=== PATIENT | female | born 1970 | race Hispanic/Latino ===

== ENCOUNTER 2024-09-12 21:52 | Emergency (ER) | payer OTHER ==
--- OUTSIDE RECORDS SUMMARY | 2024-09-12 21:55 | XMS REPORT | Continuity of Care Document ---
Author Name Unknown Address [address] [place] [address] [address] [place] [address] [facility] Address [address] [facility]. 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 Name Role Phone Patel_J Attending Clinician Unavailable [email or web address] Attending Clinician Unavailable Patel_J Admitting Clinician Unavailable [email or web address] Admitting Clinician Unavailable Payers Payer Name Policy Type Policy Number Effective Date Expirati on Date Source Encounters Start Date/Time End Date/Time Encounter Type Admission Type Attending Clinicians Care Facility Care Department Encounter ID Source 2022-02-21 00:00:00 2022-02-21 00:00:00 Outpatient Patel_J VFP VFP [id number] [facility] e 2020-11-23 04:19:00 2020-11-23 04:19:00 Outpatient VFP VFP [id number] [facility] e 2020-11-05 01:07:00 2020-11-05 01:07:00 Outpatient GC_CSFC_PAT EL_J [facility] [id number] [facility]
--- NOTE | 2024-09-12 22:30 | RAD REPORT ---
Exam:Foot Left 3 View CLINICAL HISTORY: Left foot pain FINDINGS: Mildly displaced oblique fracture fifth proximal phalanx. No dislocation
--- NOTE | 2024-09-12 22:37 | EDPHYS ---
Physician Documentation [facility] Name: Briseida Cutler Age: 54 yrs Sex: Female : 1970 Arrival Date: 09/12/2024 Time: 21:52 Bed IW2 Private MD: ED Physician Danie Bartlett HPI: 09/12 22:53 This 54 yrs old Female presents to ER via Ambulatory with complaints of Toe kb Injury. 22:53 Pt is a 54 year old female who presents for pain to left fifth toe after accidentally kb kicking furniture. Denies any other injury. . 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 - Infectious Disease History:: Denies. - Social history:: Smoking status: Patient denies any tobacco usage or history of. ROS: 22:52 Constitutional: As per HPI kb Exam: 22:52 Constitutional: This is a well developed, well nourished patient who is awake, alert, kb and in no acute distress. Head/Face: Normocephalic, atraumatic. ENT: Moist Mucous membranes Cardiovascular: Regular rate Respiratory: Respirations even and unlabored. No increased work of breathing. Talking in full sentences Skin: Warm, dry with normal turgor. Normal color. Neuro: Awake and alert, GCS 15, oriented to person, place, time, and situation. 22:52 Musculoskeletal/extremity: Extremities: grossly normal except: noted in the left fifth toe: pain, swelling, tenderness, ROM: intact in all extremities, Circulation is intact in all extremities. Sensation intact. Weight bearing: able to fully bear weight, Vital Signs: 22:00 BP 156 / 88; Pulse 69; Resp 17; Temp 98.4; Pulse Ox 100% ; Weight 63.5 kg; Height 5 ft. me1 1 in. ; Pain 5/10; 23:04 BP 149 / 81; Pulse 75; Resp 17 S; Temp 98.3(O); Pulse Ox 100% on R/A; lg3 22:00 Body Mass Index 26.45 (63.50 kg, 154.94 cm) me1 22:00 Pain Scale: Adult me1 MDM: 21:58 Medical Screening Exam initiated kb 22:52 Differential diagnosis: contusion, fracture. Data reviewed: vital signs, nurses notes. kb Historians other than the Patient: Daughter/Son: daughter. Counseling: I had a detailed discussion with the patient and/or guardian regarding the historical points, exam findings, and any diagnostic results supporting the discharge/admit diagnosis, radiology results, the need for outpatient follow up, a family practitioner, to return to the emergency department if symptoms worsen or persist or if there are any questions or concerns that arise at home. 09/12 22:00 Order name: Foot Left 3 View XRAY; Complete Time: 22:31 kb 09/12 22:31 Order name: Misc. Order: yoan tape; Complete Time: 23:04 kb Administered Medications: 22:55 Drug: HYDROcodone-acetaminophen PO 5 mg-325 mg 1 tabs PO once Route: PO; lg3 23:04 Follow up: Response: No adverse reaction; Marked relief of symptoms lg3 Disposition: 23:12 Co-signature as Attending Physician, Danie Bartlett MD I reviewed the patient's care rt provided by the Advanced Practice Provider and agree with the diagnosis and treatment plan. Disposition Summary: 09/12/24 22:37 Discharge Ordered Notes: Location: Home Condition: Stable kb Diagnosis - Displaced fracture of proximal phalanx of left lesser toe(s), initial encounter for kb closed fracture Followup: kb - With: Emergency Department - When: As needed - Reason: Worsening of condition Followup: kb - With: Private Physician - When: 2 - 3 days - Reason: Recheck today's complaints, Continuance of care, Re-evaluation by your physician Discharge Instructions: - Discharge Summary Sheet kb - Toe Fracture, [id number] kb Forms: - Medication Reconciliation Form kb - Antibiotic Education kb - Prescription Opioid Use kb - Patient Portal Instructions kb - Leadership Thank You Letter Prescriptions: - Diclofenac Sodium 75 mg Oral tablet, delayed release (enteric coated) - take 1 tablet ORAL route 2 times per day As needed; 30 tablet; Refills: 0, kb Product Selection Permitted Signatures: Dispatcher [employer] Geri Quick, GEOVANY-hCilo ARMENTA-Aleksandra Charles RN RN lg3 Danie Bartlett MD MD rt Leta Lamar RN RN me1 Corrections: (The following items were deleted from the chart) : Home Meds: None; me1 me1 22: PSHx: None; me1 me1
--- NOTE | 2024-09-12 22:37 | ER ---
Nurse's Notes [facility] Name: Briseida Cutler Age: 54 yrs Sex: Female : 1970 Arrival Date: 09/12/2024 Time: 21:52 Bed IW2 Private MD: Diagnosis: Displaced fracture of proximal phalanx of left lesser toe(s), initial encounter for closed fracture Presentation: 09/12 22:00 Chief complaint: Patient states: hit her left 5th toe on her headboard about 8 pm me1 tonight. c/o pain 11/12. Coronavirus screen: Vaccine status: Patient reports being unvaccinated. Ebola Screen: No symptoms or risks identified at this time. Initial Sepsis Screen: Does the patient meet any 2 criteria? No. Patient's initial sepsis screen is negative. Does the patient have a suspected source of infection? No. Patient's initial sepsis screen is negative. Risk Assessment: Do you want to hurt yourself or someone else?. Onset of symptoms was September 12, 2024 at 20:00. 22:00 Method Of Arrival: Ambulatory nd1 22:00 Acuity: DAVY 4 me1 Triage Assessment: 22:02 General: Appears uncomfortable, well groomed, well developed, well nourished, Behavior me1 is calm, cooperative, appropriate for age. Pain: Complains of pain in left fifth toe Pain does not radiate. Pain currently is 5 out of 10 on a pain scale. Quality of pain is described as throbbing, Pain began suddenly, Is continuous. EENT: No signs and/or symptoms were reported regarding the EENT system. Neuro: Level of Consciousness is awake, alert, obeys commands, Oriented to person, place, time, situation, Appropriate for age. Cardiovascular: Patient's skin is warm and dry. Respiratory: Airway is patent Respiratory effort is even, unlabored, Respiratory pattern is regular, symmetrical. GI: No signs and/or symptoms were reported involving the gastrointestinal system. : No signs and/or symptoms were reported regarding the genitourinary system. Derm: Skin is intact, is healthy with good turgor, Skin is pink, warm \T\ dry. Musculoskeletal: No signs and/or symptoms reported regarding the musculoskeletal system. 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 - Infectious Disease History:: Denies. - Social history:: Smoking status: Patient denies any tobacco usage or history of. Screenin:04 [facility] ED Fall Risk Assessment (Adult) History of falling in the last 3 months, lg3 including since admission No falls in past 3 months (0 pts) Confusion or Disorientation No (0 pts) Intoxicated or Sedated No (0 pts) Impaired Gait No (0 pts) Mobility Assist Device Used No (0 pt) Altered Elimination No (0 pt) Score/Fall Risk Level 0 - 2 = Low Risk Oriented to surroundings, Maintained a safe environment, Educated pt \T\ family on fall prevention, incl call for assistance when getting out of bed, Assessed \T\ reinforced patient's understanding of fall precautions. Abuse screen: Denies threats or abuse. Denies injuries from another. Nutritional screening: No deficits noted. Tuberculosis screening: No symptoms or risk factors identified. Assessment: 23:04 General: Appears in no apparent distress. comfortable, Behavior is calm, cooperative. lg3 Pain: Complains of pain in left fifth toe Pain does not radiate. Pain currently is 5 out of 10 on a pain scale. Neuro: No deficits noted. Chen Agitation-Sedation Scale (RASS): 0 - Alert and Calm Level of Consciousness is awake, alert, obeys commands, Oriented to person, place, time, situation. Cardiovascular: No deficits noted. Denies chest pain, shortness of breath, Capillary refill < 3 seconds Clubbing of nail beds is absent JVD is absent Patient's skin is warm and dry. Respiratory: No deficits noted. Airway is patent Respiratory effort is even, unlabored, Respiratory pattern is regular, symmetrical. GI: No deficits noted. No signs and/or symptoms were reported involving the gastrointestinal system. : No signs and/or symptoms were reported regarding the genitourinary system. EENT: No deficits noted. No signs and/or symptoms were reported regarding the EENT system. Derm: No deficits noted. Skin is intact, is healthy with good turgor, Skin is dry, Skin is normal, Skin temperature is warm. Musculoskeletal: Circulation, motion, and sensation intact. Range of motion: intact in all extremities, Swelling present in left fifth toe. Vital Signs: 22:00 BP 156 / 88; Pulse 69; Resp 17; Temp 98.4; Pulse Ox 100% ; Weight 63.5 kg; Height 5 ft. me1 1 in. ; Pain 5/10; 23:04 BP 149 / 81; Pulse 75; Resp 17 S; Temp 98.3(O); Pulse Ox 100% on R/A; lg3 22:00 Body Mass Index 26.45 (63.50 kg, 154.94 cm) me1 22:00 Pain Scale: Adult nd1 ED Course: 21:55 Patient arrived in ED. mr 21:58 [facility] kb 21:58 Danie Bartlett MD is Attending Physician. kb 22:02 Triage completed. me1 22:02 Arm band placed on Patient placed in waiting room. me1 22:22 Foot Left 3 View XRAY In Process Unspecified. EDMS 22:55 Leta Lamar, POP is Primary Nurse. me1 23:04 Patient has correct armband on for positive identification. lg3 23:04 No provider procedures requiring assistance completed. Patient did not have IV access lg3 during this emergency room visit. Gordo tape left fifth toe. Administered Medications: 22:55 Drug: HYDROcodone-acetaminophen PO 5 mg-325 mg 1 tabs PO once Route: PO; lg3 23:04 Follow up: Response: No adverse reaction; Marked relief of symptoms lg3 Medication: 23:04 VIS not applicable for this client. lg3 Outcome: 22:37 Discharge ordered by . kb 23:04 Discharged to home ambulatory, with family, lg3 23:04 Condition: stable 23:04 Discharge instructions given to patient, Instructed on discharge instructions, follow up and referral plans. medication usage, Demonstrated understanding of instructions, follow-up care, medications, Prescriptions given X 1, 23:07 Patient left the ED. lg3 Signatures: Dispatcher [employer] EDHI Geri Marks FNP-C FNP-CkSheree Curry, Reg Reg mr MahoneyAleksandra, RN RN lg3 Leta Lamar, RN RN me1 Corrections: (The following items were deleted from the chart) 22:03 22:02 Home Meds: None; me1 me1 22:03 22:02 PSHx: None; me1 me1
[2024-09-12] MEDS ORDERED: HYDROCODONE/APAP 5/325 MG TAB ONE (22:45)
[2024-09-12 23:53] VITALS: O2SAT 100
[2024-09-12 23:54] VITALS: BP 149/81; TEMP 98.3
== END 2024-09-12 23:07 | disposition home or self-care (01) ==
LOC: ER 21:52
DX: S92.512A Displaced fracture of proximal phalanx of left lesser toe(s), initial encounter for closed fracture (principal)
CPT/HCPCS: 99284